=== PATIENT | male | born 1975 | race Caucasian/White ===

== ENCOUNTER 2021-02-21 20:20 | Emergency (ER) | payer OTHER ==
[~2021-02-21] VITALS: Ht 177.8 cm; Wt 87.5 kg
[~2021-02-21 20:20] MED LIST: AUGMENTIN 875-1 EACH PO; ZYRTEC10 MG PO
== END 2021-02-21 22:00 | disposition home or self-care (01) ==
LOC: ED 20:20
DX: S62.616A Displaced fracture of proximal phalanx of right little finger, initial encounter for closed fracture (principal); W50.0XXA Accidental hit or strike by another person, initial encounter
CPT/HCPCS: 73140; 99283-25; A9270